=== PATIENT | female | born 1940 | race Caucasian/White ===

== ENCOUNTER 2016-08-25 07:02 | Observation (INO) | payer MEDICARE, OTHER ==
[2016-08-25] VITALS (7 sets, daily range): BP systolic 140–201; BP diastolic 63–105; PULSE 55–78; RESP 16–18; TEMP 97.8–97.9; O2SAT 96–99
[~2016-08-25] VITALS: Ht 157.5 cm; Wt 75.7 kg
[2016-08-25] MEDS ORDERED: SODIUM CHLORIDE 0.9% FLUSH 5 ML FLUSH IVF PRN ×2 (07:30→09:15)
[2016-08-25] MEDS ORDERED: ASPIRIN 81 MG CHEW TAB PO ONE (07:30)
[2016-08-25] MEDS ORDERED: FAMOTIDINE 20 MG/2 ML VIAL IV PUSH ONE (07:30)
[2016-08-25 07:47] LABS: AUTOMATED NEUTROPHIL # 5.6 TH/MM3 (1.8-7.7); BASOPHIL # 0.1 TH/MM3 (0-0.2); BASOPHIL % 0.8 % (0.0-2.0); EOSINOPHIL # 0.1 TH/MM3 (0-0.4); EOSINOPHIL % 1.2 % (0.0-4.0); HEMATOCRIT 38.3 % (35.0-46.0); LYMPH % 16.4 % (9.0-44.0); LYMPHOCYTE # 1.2 TH/MM3 (1.0-4.8); MEAN CORPUSCULAR HEMOGLOBIN 30.1 PG (27.0-34.0); MEAN CORPUSCULAR HGB CONC 33.8 % (32.0-36.0); MONO % 5.3 % (0.0-8.0); NEUT % 76.3 % (16.0-70.0); PLATELET COUNT 226 TH/MM3 (150-450); RED CELL DISTRIBUTION WIDTH 12.6 % (11.6-17.2); WHITE BLOOD COUNT 7.4 TH/MM3 (4.0-11.0)
[2016-08-25 07:48] LABS: HEMO FLAGS DIFF FINAL
--- NOTE | 2016-08-25 07:49 | PD ---
HPI Chief Complaint: Abdominal Pain Time Seen by Provider: 07:19 Travel History International Travel<30 days: No Contact w/Intl Traveler<30days: No Traveled to known affect area: No History of Present Illness HPI Patient is a 76 year old female with history of HTN, DM, who comes in complaining of epigastric pain with nausea and dizziness. She says she woke up and felt like she needed to have a bowel movement. She says she went to the bathroom, but was unable to move her bowels. She then started to feel nauseous and having epigastric abdominal pain. She says the pain comes and goes. She says she has not vomited, but continues to have waves of nausea. She denies fever or chills. She says that while she was laying in bed after starting to feel ill, she had an episode of dizziness and a sensation of the room spinning around her. She denies passing out or any head injuries. She last ate a hot dog last night, which her had as well and he has no symptoms. PFSH Past Medical History Cardiovascular Problems: Yes (htn on meds didnt take this am) Diabetes: Yes (type 2) ?: Not Social History Tobacco Use: No Allergies-Medications (Allergen,Severity, Reaction): Coded Allergies: No Known Allergies (Verified , 08/25/16) Reported Meds & Prescriptions Reported Meds & Active Scripts Active Reported Glimepiride 1 Mg Tab 0.5 Mg PO DAILY Take with breakfast or first main meal Atorvastatin (Atorvastatin Calcium) 40 Mg Tab 40 Mg PO HS Carvedilol 6.25 Mg Tab 6.25 Mg PO BID Losartan-Hydrochlorothiazide 100-25 Mg Tab 1 Tab PO DAILY Fenofibrate 145 Mg Tab 145 Mg PO DAILY Review of Systems Except as stated in HPI: all other systems reviewed are Neg General / Constitutional: No: Fever, Chills Eyes: No: Blurred Vision HENT: Positive: Vertigo, No: Headaches Respiratory: No: Shortness of Breath Gastrointestinal: Positive: Nausea, Vomiting, Abdominal Pain Genitourinary: No: Dysuria Skin: No Rash, No Change in Pigmentation Neurologic: Positive: Dizziness, No: Weakness Physical Exam Narrative GENERAL: Awake and alert, in no acute distress. SKIN: Warm and dry. HEAD: Atraumatic. Normocephalic. EYES: Pupils equal and round. No scleral icterus. Extraocular movements intact. ENT: Mucous membranes pink and moist. NECK: Trachea midline. No JVD. CARDIOVASCULAR: Regular rate and rhythm. No murmur appreciated. RESPIRATORY: No accessory muscle use. Clear to auscultation. Breath sounds equal bilaterally. GASTROINTESTINAL: Abdomen soft, non-tender, nondistended. MUSCULOSKELETAL: No obvious deformities. No clubbing. No cyanosis. No edema. NEUROLOGICAL: Awake and alert. No obvious cranial nerve deficits. Motor grossly within normal limits. Normal speech. PSYCHIATRIC: Appropriate mood and affect; insight and judgment normal. Data Data Last Documented VS Vital Signs Date Time Temp Pulse Resp B/P Pulse Ox O2 Delivery O2 Flow Rate FiO2 08/25/16 07:43 98 Room Air 08/25/16 07:43 193/76 201/105 08/25/16 07:06 97.8 67 16 Orders Electrocardiogram (08/25/16 07:27) Basic Metabolic Panel (Bmp) (08/25/16 07:27) Ckmb (Isoenzyme) Profile (08/25/16 07:27) Complete Blood Count With Diff (08/25/16 07:27) Magnesium (Mg) (08/25/16 07:27) Prothrombin Time / Inr (Pt) (08/25/16 07:27) Act Partial Throm Time (Ptt) (08/25/16 07:27) Troponin I (08/25/16 07:27) Lipase (08/25/16 07:27) Ecg Monitoring (08/25/16 07:27) Bilateral Bp Monitoring (08/25/16 07:27) Iv Access Insert/Monitor (08/25/16 07:27) Oximetry (08/25/16 07:27) Aspirin Chew (Aspirin Chew) (08/25/16 07:30) Sodium Chloride 0.9% Flush (Ns Flush) (08/25/16 07:30) Chest, Pa & Lat (08/25/16 07:27) Hepatic Functional Panel (08/25/16 07:27) Famotidine Inj (Pepcid Inj) (08/25/16 07:30) CKMB (08/25/16 07:36) CKMB% (08/25/16 07:36) Admit Order (Ed Use Only) (08/25/16 ) Labs Laboratory Tests Test 08/25/16 07:36 White Blood Count 7.4 TH/MM3 Red Blood Count 4.30 MIL/MM3 Hemoglobin 12.9 GM/DL Hematocrit 38.3 % Mean Corpuscular Volume 89.0 FL Mean Corpuscular Hemoglobin 30.1 PG Mean Corpuscular Hemoglobin 33.8 % Concent Red Cell Distribution Width 12.6 % Platelet Count 226 TH/MM3 Mean Platelet Volume 9.4 FL Neutrophils (%) (Auto) 76.3 % Lymphocytes (%) (Auto) 16.4 % Monocytes (%) (Auto) 5.3 % Eosinophils (%) (Auto) 1.2 % Basophils (%) (Auto) 0.8 % Neutrophils # (Auto) 5.6 TH/MM3 Lymphocytes # (Auto) 1.2 TH/MM3 Monocytes # (Auto) 0.4 TH/MM3 Eosinophils # (Auto) 0.1 TH/MM3 Basophils # (Auto) 0.1 TH/MM3 CBC Comment DIFF FINAL Differential Comment Prothrombin Time 10.7 SEC Prothromb Time International 1.0 RATIO Ratio Activated Partial 24.4 SEC Thromboplast Time Sodium Level 140 MEQ/L Potassium Level 3.8 MEQ/L Chloride Level 107 MEQ/L Carbon Dioxide Level 22.2 MEQ/L Anion Gap 11 MEQ/L Blood Urea Nitrogen 25 MG/DL Creatinine 1.20 MG/DL Estimat Glomerular Filtration 44 ML/MIN Rate Random Glucose 178 MG/DL Calcium Level 9.7 MG/DL Magnesium Level 1.8 MG/DL Total Bilirubin 0.4 MG/DL Direct Bilirubin 0.1 MG/DL Indirect Bilirubin 0.3 MG/DL Aspartate Amino Transf 19 U/L (AST/SGOT) Alanine Aminotransferase 17 U/L (ALT/SGPT) Alkaline Phosphatase 75 U/L Total Creatine Kinase 104 U/L Creatine Kinase MB 1.9 NG/ML Troponin I LESS THAN 0.02 NG/ML Total Protein 6.8 GM/DL Albumin 3.7 GM/DL Lipase 191 U/L [facility] Medical Decision Making Medical Screen Exam Complete: Yes Emergency Medical Condition: Yes Interpretation(s) ECG shows normal sinus rhythm at 62 T-wave flattening in V3 through V6. Differential Diagnosis ACS vs GERD vs NSTEMI vs STEMI Narrative Course Patient is a 76-year-old female comes in complaining of epigastric pain with nausea and dizziness. Exam shows no acute abnormalities. ECG shows no signs of ischemia. IV established, patient connected to the electrical controls assembler. Labs sent. Eating first troponin are negative. Patient given aspirin as well as famotidine. While patient was in the emergency department, she started to have left-sided chest pain. Patient will be placed in observation for further management, rule out ACS. Diagnosis Primary Impression: ACS (acute coronary syndrome) Admitting Information Admitting Physician Requests: Observation Cassia Crowe MD Aug 25, 2016 07:49 Cassia Crowe MD Aug 25, 2016 07:49
[2016-08-25] MEDS ORDERED: FENO145T2 PO (07:53)
[2016-08-25] MEDS ORDERED: GLIM1TAB PO (07:53)
[2016-08-25] MEDS ORDERED: CARV6.252 PO (07:53)
[2016-08-25] MEDS ORDERED: LOSA100T2 PO (07:53)
[2016-08-25] MEDS ORDERED: ATOR40TA16 PO (07:53)
[2016-08-25 07:55] LABS: CHLORIDE 107 MEQ/L (98-107); POTASSIUM 3.8 MEQ/L (3.5-5.1); SODIUM (NA) 140 MEQ/L (136-145)
[2016-08-25 07:59] LABS: ANION GAP 11 MEQ/L (5-15); APTT (PATIENT) 24.4 SEC (24.3-30.1); BICARBONATE 22.2 MEQ/L (21.0-32.0); BLOOD UREA NITROGEN 25 MG/DL (7-18); MAGNESIUM 1.8 MG/DL (1.5-2.5); PROTHROMBIN TIME - PATIENT 10.7 SEC (9.8-11.6)
[2016-08-25 08:02] LABS: ALT (GPT) 17 U/L (10-53); AST (GOT) 19 U/L (15-37); GLOMERULAR FILTRATION RATE 44 ML/MIN (>89)
[2016-08-25 08:03] LABS: INDIRECT BILIRUBIN 0.3 MG/DL (0.0-0.8); TOTAL BILIRUBIN ADULT 0.4 MG/DL (0.2-1.0)
[2016-08-25 08:04] LABS: CREATINE KINASE 104 U/L (26-192)
[2016-08-25 08:05] LABS: ALKALINE PHOSPHATASE 75 U/L (45-117)
[2016-08-25 08:17] LABS: CKMB 1.9 NG/ML (0.5-3.6)
--- NOTE | 2016-08-25 08:55 | RADHPO ---
EXAM DATE/TIME: 08/25/2016 08:15 [facility] COMPARISON: No previous studies available for comparison. INDICATIONS : Chest pain. MEDICAL HISTORY : None. SURGICAL HISTORY : None. ENCOUNTER: Initial ACUITY: 2 days PAIN SCORE: 6/10 LOCATION: Bilateral chest FINDINGS: PA and lateral views of the chest. Lung volumes are low. Linear subsegmental atelectasis versus scarr ing in the lingula. The lungs are otherwise clear. Cardiomediastinal silhouette within normal limits. No evidence of pleural effusion or pneumothorax. CONCLUSION: Subsegmental atelectasis or scarring in the lingula. No acute cardiopulmonary dise ase identified. Daron Kaufman MD on August 25, 2016 at 8:52 Board Certified Radiologist. This report was verified electronically.
[2016-08-25] MEDS ORDERED: DEXTROSE 50% IN WATER 50 ML VIAL(D50) IV PUSH PRN (09:15)
[2016-08-25] MEDS ORDERED: ACETAMINOPHEN/HYDROcodone 325 MG/7.5 MG TAB PO PRN (09:15)
[2016-08-25] MEDS ORDERED: NITROGLYCERIN 0.4 MG SL 25 TABS/BTL SL PRN (09:15)
[2016-08-25] MEDS ORDERED: ACETAMINOPHEN 500 MG CPLT PO PRN (09:15)
[2016-08-25] MEDS ORDERED: MORPHINE SULFATE 4 MG/ML INJ IV PRN (09:15)
[2016-08-25] MEDS ORDERED: TEMAZEPAM 15 MG CAP PO PRN (09:15)
[2016-08-25] MEDS ORDERED: GLUCAGON 1 MG/ML VIAL OTHER PRN (09:15)
[2016-08-25] MEDS ORDERED: ONDANSETRON HCL 4 MG/2 ML VIAL IV PRN (09:15)
[2016-08-25 10:46] LABS: CREATINE KINASE 90 U/L (26-192)
[2016-08-25] MEDS ORDERED: INSULIN ASPART SUPPLEMENTAL SCALE SQ SCH (11:00)
--- NOTE | 2016-08-25 11:32 | HHI.HP ---
[facility] Non[facility]Staff Admission Diagnosis Chest pain Diagnoses: (1) Chest pain Diagnosis: Principal (2) Hypertension Diagnosis: Secondary (3) Hyperlipidemia Diagnosis: Secondary (4) Chronic kidney disease, stage 3 Diagnosis: Secondary (5) Family history of heart disease Diagnosis: Secondary (6) Diabetes Diagnosis: Secondary Chief Complaint: Chest pain Travel History International Travel<30 Days: No Contact w/Intl Traveler <30 Da: No Traveled to Known Affected Are: No History of Present Illness 76-year-old female with known history of hypertension, hyperlipidemia , diabetes, history of renal carcinoma who presented to hospital because of chest pain. Patient states that normal state of health yesterday she went [place] the race track and wants some races. She had a hot dog, scottish fries and soda for lunch. Impression midnight she developed a discomfort in the upper abdomen and lower chest which she describes as a burning sensation. 10/10 on a pain scale. She had nausea but no vomiting. Denied any shortness of breath or dyspnea. Denied any diaphoresis. No radiation to neck, back, shoulder, arm. Because of pain was intermittent at least 15 times lasting less than 5 minutes at a time since midnight she came to emergency department for evaluation. Patient had workup done with initial cardiac enzymes which are negative. Because the patient's increased risk factors is recommended by the ER physician that patient be observed and chest pain center for further evaluation. Review of Systems Constitutional: DENIES: Diaphoretic episodes, Fatigue, Fever, Weight gain, Weight loss, Chills, Dizziness, Change in appetite, Night Sweats Eyes: DENIES: Blurred vision, Diplopia, Eye inflammation, Eye pain, Vision loss , Double Vision Ears, nose, mouth, throat: DENIES: Vertigo, Nasal discharge, Throat pain, Ear Pain, Running Nose, Sinus Pain Respiratory: DENIES: Apneas, Cough, Snoring, Wheezing, Hemoptysis, Sputum production, Shortness of breath Cardiovascular: DENIES: Chest pain, Palpitations, Syncope, Dyspnea on Exertion , Lower Extremity Edema, Orthopnea Gastrointestinal: DENIES: Abdominal pain, Black stools, Bloody stools, Constipation, Diarrhea, Nausea, Vomiting, Difficulty Swallowing, Anorexia Neurologic: DENIES: Abnormal gait, Headache, Localized weakness, Paresthesias, Seizures, Speech Problems, Tremor, Poor Balance Psychiatric: DENIES: Anxiety, Confusion, Mood changes, Depression Past Family Social History Past Medical History Hypertension Hyperlipidemia History renal carcinoma Diabetes Past Surgical History Left facial surgery due to fracture Cryoblation surgery of right kidney Cataract surgery Tonsillectomy Reported Medications Reported Meds & Active Scripts Active Reported Glimepiride 1 Mg Tab 0.5 Mg PO DAILY Take with breakfast or first main meal Atorvastatin (Atorvastatin Calcium) 40 Mg Tab 40 Mg PO HS Carvedilol 6.25 Mg Tab 6.25 Mg PO BID Losartan-Hydrochlorothiazide 100-25 Mg Tab 1 Tab PO DAILY Fenofibrate 145 Mg Tab 145 Mg PO DAILY Allergies: Coded Allergies: No Known Allergies (Verified , 08/25/16) Family History Reviewed is significant for father having heart disease, mother with dementia Social History Patient does drink alcohol approximately 1 drink daily. Denies any tobacco or illicit drugs Physical Exam Vital Signs Vital Signs Date Time Temp Pulse Resp B/P Pulse Ox O2 Delivery O2 Flow Rate FiO2 08/25/16 11:08 55 08/25/16 10:41 97.9 76 18 143/70 96 08/25/16 09:18 78 18 147/63 98 Room Air 08/25/16 07:43 98 Room Air 08/25/16 07:43 193/76 201/105 08/25/16 07:06 97.8 67 16 188/93 99 Physical Exam GENERAL: Well-developed, well-nourished, in no acute distress. alert and orientated HEENT: Head is normocephalic without any lesions or masses noted. Facial features are symmetric. Eyes: Pupils equal round reactive to light. Extraocular muscles are intact. Conjunctivae were clear. Oropharyngeal: Pharynx without any erythema edema. Tongue is midline without deviation. Buccal mucosa is moist without any masses or lesions NECK: Supple without any masses. Trachea midline no deviation. No JVD, no bruits are appreciated CARDIAC: Regular rhythm, regular rate. S1/S2 are heard. No murmurs gallops or rubs. LUNGS: Clear to auscultation bilaterally. No wheeze, rhonchi or rales. No use of accessory muscles on inspiration or expiration. ABDOMEN: Soft, nontender. Nondistended. Bowel sounds heard in all 4 quadrants. No organomegaly or masses. Negative rebound, negative guarding EXTREMITIES: No edema, pulses are equal bilaterally. No cyanosis or clubbing NEUROLOGY: Mood and affect appear appropriate. Cranial nerves II through XII grossly intact. Muscle strength 5/5 in upper and lower extremities bilaterally. Deep tendon reflexes are 2+ in upper and lower extremities bilaterally. Laboratory Laboratory Tests Test 08/25/16 08/25/16 07:36 10:15 White Blood Count 7.4 Red Blood Count 4.30 Hemoglobin 12.9 Hematocrit 38.3 Mean Corpuscular Volume 89.0 Mean Corpuscular Hemoglobin 30.1 Mean Corpuscular Hemoglobin 33.8 Concent Red Cell Distribution Width 12.6 Platelet Count 226 Mean Platelet Volume 9.4 Neutrophils (%) (Auto) 76.3 Lymphocytes (%) (Auto) 16.4 Monocytes (%) (Auto) 5.3 Eosinophils (%) (Auto) 1.2 Basophils (%) (Auto) 0.8 Neutrophils # (Auto) 5.6 Lymphocytes # (Auto) 1.2 Monocytes # (Auto) 0.4 Eosinophils # (Auto) 0.1 Basophils # (Auto) 0.1 CBC Comment DIFF FINAL Differential Comment Prothrombin Time 10.7 Prothromb Time International 1.0 Ratio Activated Partial 24.4 Thromboplast Time Sodium Level 140 Potassium Level 3.8 Chloride Level 107 Carbon Dioxide Level 22.2 Anion Gap 11 Blood Urea Nitrogen 25 Creatinine 1.20 Estimat Glomerular Filtration 44 Rate Random Glucose 178 Calcium Level 9.7 Magnesium Level 1.8 Total Bilirubin 0.4 Direct Bilirubin 0.1 Indirect Bilirubin 0.3 Aspartate Amino Transf 19 (AST/SGOT) Alanine Aminotransferase 17 (ALT/SGPT) Alkaline Phosphatase 75 Total Creatine Kinase 104 90 Creatine Kinase MB 1.9 Troponin I LESS THAN 0.02 LESS THAN 0.02 Total Protein 6.8 Albumin 3.7 Lipase 191 Result Diagram: 08/25/16 0736 08/25/16 0736 Imaging Last Impressions Chest X-Ray 08/25/16 0727 Signed Impressions: Service Date/Time: Thursday, August 25, 2016 08:15 - CONCLUSION: Subsegmental atelectasis or scarring in the lingula. No acute cardiopulmonary disease identified. Daron Kaufman MD Assessment and Plan Assessment and Plan Chest pain: Patient with increased risk factors include age, hypertension, hypokalemia, diabetes, family history heart disease. Patient had been ruled out thus far for acute coronary event with serial cardiac enzymes which have remained negative, serial EKGs that were reviewed by myself that indicate sinus rhythm with inferior/anterior T-wave changes which are nonspecific. Nuclear stress test was performed did not indicate any underlying ischemia. Continue aspirin and nitroglycerin as needed. Hypertension, hyperlipidemia: Continue home medications Diabetes: Accu-Cheks with sliding scale insulin DVT prevention: Sequential compression devices Written by Silas Chris PA-C, acting as scribe for Dr. Morrison on 08/25/16 at 1530. The documentation accurately reflects the work and decisions performed face-to- face by Dr. Morrison on 08/25/16 at 1530. Discharge disposition Discharge home in stable condition Activity: Ad hal. Diet: Healthy heart diet/diabetic diet Medications per medication reconciliation Follow-up primary medical doctor one week Problem Qualifiers (1) Diabetes: Qualified Code: E11.8 - Type 2 diabetes mellitus with complication, without long-term current use of insulin Silas Chris Aug 25, 2016 11:32
[2016-08-25] MEDS ORDERED: REGADENOSON INJ 0.4 MG/5 ML SYR IV ONE (14:10)
--- NOTE | 2016-08-25 14:10 | EKG ---
Date Performed: 08/25/2016 Time Performed: 07:33:08 PTAGE: 76 years EKG: Sinus rhythm Leftward axis Left ventricular hypertrophy by voltage only Inferior and anterior T wave changes are nonspecific Abnormal ECG NO PREVIOUS TRACING DOCTOR: Vaughn Pace Interpretating Date/Time 08/25/2016 15:37:30
[2016-08-25 14:16] LABS: CREATINE KINASE 84 U/L (26-192)
--- NOTE | 2016-08-25 15:15 | RADHPO ---
EXAM DATE/TIME: 08/25/2016 14:16 [facility] COMPARISON: No previous studies available for comparison. INDICATIONS : Lower chest pain for 1 day. Angina. DOSE: 25.6 mCi Tc99m Myoview at stress. 8.1 mCi Tc99m Myoview at rest. 0.4 mg Lexiscan STRESS SYMPTOMS: None. EJECTION FRACTION: > 70% MEDICAL HISTORY : Hypercholesterolemia. Hypertension. Diabetes mellitus type 2. Renal cancer. SURGICAL HISTORY : Inguinal hernia repair. Cryoablation of right kidney. ENCOUNTER: Initial ACUITY: 1 day PAIN SCALE: 10/10 LOCATION: Substernal chest TECHNIQUE: The patient underwent pharmacologic stress with infusion of prescribed dose. Continuous ECG tracing was monitored during stress. Gated SPECT imaging was performed after stress and conventional SPECT i maging was performed at rest. The examination was performed on a SPECT/CT scanner, both attenuation and non-corrected datasets were reviewed. FINDINGS: DISTRIBUTION: The maximum perfused segment at stress is in the anterior wall. PERFUSION STUDY: The pattern of perfusion at stress is within normal limits. GATED STUDY: There is intact wall motion and thickening without hypokinetic or dyskinetic segments. CONCLUSION: No reversible perfusion defects. No focal wall motion abnormalities. Left ventricular ejection fracti on within normal limits. RISK CATEGORY: 1- Low Risk. Daron Kaufman MD on August 25, 2016 at 15:13 Board Certified Radiologist. This report was verified electronically.
--- NOTE | 2016-08-25 15:23 | HHI.DCPOC ---
Discharge Care Plan Diagnosis: (1) Chest pain Goals to Promote Your Health * To prevent worsening of your condition and complications * To maintain your health at the optimal level Directions to Meet Your Goals Take your medications as prescribed Follow your dietary instruction Follow activity as directed Keep your appointments as scheduled Take your immunizations and boosters as scheduled If your symptoms worsen call your PCP, if no PCP go to Urgent Care Center or Emergency Room Smoking is Dangerous to Your Health. Avoid second hand smoke Call the 24-hour hour crisis hotline for domestic abuse at Silas Chris Aug 25, 2016 15:23
[2016-08-25] MEDS ORDERED: SODIUM CHLORIDE 0.9% FLUSH 5 ML FLUSH IVF SCH (21:00)
[2016-08-26] MEDS ORDERED: ASPIRIN 325 MG TAB PO SCH (09:00)
--- NOTE | 2016-08-26 14:36 | EKG ---
Date Performed: 08/25/2016 Time Performed: 13:25:12 PTAGE: 76 years EKG: Sinus bradycardia. Left ventricular hypertrophy by voltage only Inferior and ant/septal T w ave changes are nonspecific Abnormal ECG PREVIOUS TRACING : 08/25/2016 10.17 DOCTOR: Dez Montoya Interpretating Date/Time 08/26/2016 14:31:41
--- NOTE | 2016-08-26 14:41 | EKG ---
Date Performed: 08/25/2016 Time Performed: 10:17:52 PTAGE: 76 years EKG: Sinus bradycardia. Left ventricular hypertrophy Extensive T wave changes are probably due t o ventricular hypertrophy Abnormal ECG PREVIOUS TRACING : 08/25/2016 07.33 DOCTOR: Dez Montoya Interpretating Date/Time 08/26/2016 14:35:14
--- NOTE | 2016-08-27 12:33 | TR ---
Date Performed: 08/25/2016 Time Performed: 14:28:59 DOCTOR: Joyce Carmen DRUG LIST: CLINICAL HISTORY: CHEST PAIN REASON FOR TEST: REASON FOR ENDING: OBSERVATION: CONCLUSION: Lexiscan stress test was performed under standard four minute protocol. Radionuclid e was injected one minute prior to ending the test. No electrocardiographic abormalities were present to suggest ischemia. Nuclear imaging and interpretation are pending. COMMENTS:
== END 2016-08-25 15:56 | disposition home or self-care (01) ==
LOC: PHED 07:02 → PHEDA 09:01 → UNDOADMOB 09:01 → PH3B 09:53 → PHEDA 09:53 → UNDODISOB 15:56
PROVIDERS: ADMIT Family Medicine; ATTEND Family Medicine
DX: R07.89 Other chest pain (principal); I12.9 Hypertensive chronic kidney disease with stage 1 through stage 4 chronic kidney disease, or unspecified chronic kidney disease; N18.3 Chronic kidney disease, stage 3 (moderate); E11.22 Type 2 diabetes mellitus with diabetic chronic kidney disease; R94.31 Abnormal electrocardiogram [ECG] [EKG]; E78.5 Hyperlipidemia, unspecified; J98.11 Atelectasis; Z85.528 Personal history of other malignant neoplasm of kidney; Z82.49 Family history of ischemic heart disease and other diseases of the circulatory system; Z79.84 Long term (current) use of oral hypoglycemic drugs
CPT/HCPCS: 71020; 78452; 80048; 80076; 82550; 82552; 82948; 83690; 83735; 84484; 85025; 85610; 85730; 93005; 93017; 96374; 99285; A9502; G0378; J2785